=== PATIENT | female | born 1940 | race Caucasian/White ===

== ENCOUNTER 2018-03-21 09:07 | Inpatient (IN) ==
[2018-03-21] MEDS ORDERED: Metoprolol Tartrate 25 MG Tablet PO SCH (10:00)
[2018-03-21] MEDS ORDERED: Sodium Chlor 0.9% Inj 500 ML IV.SIG SCH (10:00)
[2018-03-21] MEDS ORDERED: Chlorhexidine Gluconate 2% 1 Pack (2 Cloths) TOPICAL SCH (10:00)
[2018-03-21] MEDS ORDERED: Vancomycin Inj 1,000 MG in Sodium Chlor 0.9% Inj 250 ML IV.SIG SCH (11:41)
[2018-03-21] MEDS ORDERED: Bupivacaine/Epinephrine PF Inj 0.5% 30 ML Vial ONE (11:48)
[2018-03-21] MEDS ORDERED: Protamine Sulfate Inj 50 MG/5 ML Vial ONE (11:48)
[2018-03-21] MEDS ORDERED: Heparin - SQ 10,000 UNITS/ML Vial ONE (11:48)
[2018-03-21] MEDS ORDERED: Heparin 10,000 UNITS/10 ML Vial (for IV use) ONE (11:48)
[2018-03-21] MEDS ORDERED: Sodium Chlor 0.9% Inj 250 ML ONE (11:49)
[2018-03-21] MEDS ORDERED: Neostigmine Inj 5 MG/5 ML Syringe IV.PUSH ONE (12:00)
[2018-03-21] MEDS ORDERED: Phenylephrine/NS 1000 MCG/10ML Syringe IV.PUSH ONE (12:00)
[2018-03-21] MEDS ORDERED: Sodium Chlor 0.9% Inj 500 ML IV.SIG ONE (12:00)
[2018-03-21] MEDS ORDERED: Iohexol 300 MG/ML 50 ML Vial (for Rad Diag) IVCONTRAST ONE ×2 (12:00→14:31)
[2018-03-21] MEDS ORDERED: Lidocaine PF 1% Inj 5 ML Syringe INFILTRATN ONE (12:00)
[2018-03-21] MEDS ORDERED: Glycopyrrolate Inj 1 MG/5 ML Syringe IV.PUSH ONE (12:00)
[2018-03-21] MEDS ORDERED: Sodium Chlor 0.9% Inj 250 ML IV.SIG ONE (12:00)
--- NOTE | 2018-03-21 12:42 | ECG ---
Date Performed: 03/21/2018 Time Performed: 10:09:31 PTAGE: 77 years EKG: Baseline artifact present Sinus rhythm MINIMAL ST DEPRESSION BORDERLINE ECG NO PREVIOUS TRACING DOCTOR: Jaskaran Dempsey Interpretating Date/Time 03/21/2018 12:40:33
[2018-03-21] MEDS ORDERED: fentaNYL Citrate Inj 100 MCG/2 ML Ampul ONE (14:17)
[2018-03-21] MEDS ORDERED: HYDROmorphone PF Inj 2 MG/ML Vial ONE (14:37)
[2018-03-21] MEDS ORDERED: Acetaminophen 325 MG Tablet PO PRN (14:41)
[2018-03-21] MEDS ORDERED: Potassium Chloride 25 MEQ Effervescent Tablet PO PRN (15:12)
[2018-03-21] MEDS ORDERED: Potassium Phosphate Inj 30 MMOL in Sodium Chlor 0.9% Inj 250 ML IV.SIG PRN (15:12)
[2018-03-21] MEDS ORDERED: Magnesium Sulfate Inj 4 GM in Sodium Chlor 0.9% Inj 92 ML IV.SIG PRN (15:12)
[2018-03-21] MEDS ORDERED: Potassium Chlor 20 mEq Premix 20 MEQ/100 ML PIGGYBACK IV.SIG PRN ×2 (15:12)
[2018-03-21] MEDS ORDERED: Potassium Chlor 40 mEq Premix 40 MEQ/100 ML PIGGYBACK IV.SIG PRN ×2 (15:12)
[2018-03-21] MEDS ORDERED: Sodium Phosphate Inj 30 MMOL in Sodium Chlor 0.9% Inj 250 ML IV.SIG PRN (15:12)
[2018-03-21] MEDS ORDERED: Magnesium Sulfate Inj 2 GM in Sodium Chlor 0.9% Inj 96 ML IV.SIG PRN (15:12)
[2018-03-21] MEDS ORDERED: Magnesium Oxide 400 MG Tablet PO PRN (15:12)
[2018-03-21] MEDS ORDERED: Potassium Phosphate 500 MG Soluble Tablet PO PRN ×2 (15:12)
[2018-03-21] MEDS ORDERED: diphenhydrAMINE HCl 50 MG/ML VIAL IV.PUSH ONE (15:35)
--- NOTE | 2018-03-21 20:29 | MP ---
cc: Edward Perez MD, Patricia J MD DATE OF OPERATION: 03/21/2018 PREOPERATIVE DIAGNOSIS: Infrarenal abdominal aortic aneurysm, 5.5 plus cm in diameter. POSTOPERATIVE DIAGNOSIS: Infrarenal abdominal aortic aneurysm, 5.5 plus cm in diameter. OPERATIVE PROCEDURE: Percutaneous endovascular aneurysm repair. SURGEON: Edward Perez. PROTECTIVE SERVICES OFFICER: [employer] Giraldo ANESTHESIA: General endotracheal. DESCRIPTION OF PROCEDURE: With the patient in the supine position, general endotracheal anesthesia was induced, the abdomen, both groins, and thighs were prepped with Betadine and draped in a sterile fashion. One gram of vancomycin was administered intravenously. Following a protocol timeout, the skin and subcutaneous tissues overlying and surrounding the proposed common femoral access sites were infiltrated with 0.5% Marcaine with epinephrine. Utilizing ultrasound guidance, both the right and left common femoral arteries were accessed in a retrograde fashion with an 18-gauge arterial needles and J wires was advanced under fluoroscopic guidance into each iliac artery. A 7-[place] hemostatic sheath was deployed over the J wires. Angled Glidewires were navigated under fluoroscopic guidance into the suprarenal aorta. The angled Glidewires were then exchanged over a Berenstein catheter for Amplatz wires parked within the thoracic aorta. 18 and 12-[place] hemostatic sheath were deployed via the right and left femoral arteries, respectively. The patient was systemically heparinized with 5000 units. A marker pigtail catheter was advanced via the left femoral sheath to the suprarenal level and flush aortogram accomplished, accurately delineating the origin of both renal arteries as well as allowing iliac length measurements for selection of the appropriate endoprosthesis. The main body endoprosthesis was delivered via the right femoral sheath and pre-deployed immediately distal to the renal artery origins. The contralateral gate was then engaged with a Berenstein, angled Glidewire combination. A Q-50 balloon was partially inflated within the endoprosthetic main body lumen to ensure endoluminal localization. Diluted contrast was injected via the left femoral sheath to accurately delineate the left iliac bifurcation and allow contralateral limb length selection. The contralateral limb was then deployed, followed by a repeat flush aortogram to redefine the proximal pre-deployment accuracy followed by completion of the proximal deployment. A Q-50 balloon was then utilized to gently balloon dilate the aortic and iliac seal zones as well as an endoprosthetic overlap areas. Completion angiogram revealed a secure repair with no technical defects. It should be noted that prior to the initial Amplatz guidewire placement, Perclose devices were pre-deployed at the 10 o'clock and 2 o'clock positions bilaterally. Following completion of the repair, the hemostatic sheaths were removed and secure hemostasis achieved by deploying the Perclose devices. Heparin was reversed with 30 mg of protamine and strict hemostasis achieved. At the completion of the procedure. Pedal pulses remained easily palpable. Instrument, needle, and sponge count were correct x2. There were no operative complications. The patient returned to postanesthesia recovery in stable condition, having tolerated the procedure well. Edward Perez MD JTS/ct , 06:07 PM , 06:19 PM
[2018-03-22] MEDS: Heparin - SQ 10,000 UNITS/ML Vial SQ SCH ×2 (02:27→12:01)
[2018-03-22 09:45] VITALS: RESP 15
[2018-03-22 11:53] VITALS: BP 102/57; TEMP 97.5; O2SAT 95
[2018-03-22 12:06] VITALS: PULSE 64
== END 2018-03-22 13:58 | disposition home or self-care (01) ==
LOC: HSDC 09:07 → HSDI 11:24 → EDSTATUS 11:30 → HCPC 16:20
PROVIDERS: ADMIT Surgery Vascular Surgery; ATTEND Surgery Vascular Surgery